=== PATIENT | female | born 1965 | race Caucasian/White ===

== ENCOUNTER 2017-10-31 06:09 | Emergency (ER) | payer OTHER ==
[~2017-10-31] VITALS: Ht 152.4 cm; Wt 54.4 kg
[~2017-10-31 06:09] MED LIST: CIPRO500 MG PO; KETO10TA2 PO; TRAMADOL HCL-AP1 TAB PO
[2017-10-31] MEDS ORDERED: AMOX1TAB12 PO (08:11)
[2017-10-31] MEDS ORDERED: ZYNCOF 20-400120 ML PO (08:11)
[2017-10-31] MEDS ORDERED: KETO10TA2 PO (08:11)
== END 2017-10-31 08:25 | disposition home or self-care (01) ==
LOC: ER 06:09
DX: L08.89 Other specified local infections of the skin and subcutaneous tissue (principal); R05 Cough

== ENCOUNTER 2018-11-02 19:01 | Emergency (ER) | payer OTHER ==
[~2018-11-02] VITALS: Ht 152.4 cm; Wt 59.0 kg
[~2018-11-02 19:01] MED LIST changes: +AMOX1TAB12 PO; +ZYNCOF 20-400120 ML PO
[2018-11-04] MEDS ORDERED: CRESTOR10 MG (23:20)
[2018-11-04] MEDS ORDERED: DESCOVY 200-251 EACH (23:20)
[2018-11-04] MEDS ORDERED: TIVICAY50 MG (23:20)
[2018-11-05] MEDS ORDERED: CLONAZEPAM1 MG PO (03:58)
== END 2018-11-03 00:59 | disposition home or self-care (01) ==
LOC: ER 19:01
DX: J42 Unspecified chronic bronchitis (principal)

== ENCOUNTER → 2018-11-04 | Emergency (ER) | payer OTHER ==
[~2018-11-04] VITALS: Ht 152.4 cm; Wt 59.0 kg
[~2018-11-04] MED LIST changes: +CLONAZEPAM1 MG PO; +CRESTOR10 MG; +DESCOVY 200-251 EACH; +TIVICAY50 MG
== END | disposition home or self-care (01) ==
LOC: ER 23:06
DX: R06.02 Shortness of breath (principal); F41.8 Other specified anxiety disorders

== ENCOUNTER 2023-01-08 13:50 | Emergency (ER) | payer OTHER ==
[~2023-01-08] VITALS: Ht 152.4 cm; Wt 55.8 kg
[2023-01-08] MEDS ORDERED: LEVOFLOXACIN750 MG PO (18:20)
== END 2023-01-08 19:02 | disposition home or self-care (01) ==
LOC: ER 13:50
DX: N20.9 Urinary calculus, unspecified (principal); I10 Essential (primary) hypertension; R10.9 Unspecified abdominal pain

== ENCOUNTER 2025-04-13 07:42 | Outpatient (CLI) | payer OTHER ==
[~2025-04-13 07:42] MED LIST changes: +CRESTOR10 MG PO; +LEVOFLOXACIN750 MG PO; +QC TUSSIN DM L118 ML PO; +ZESTRIL10 M1 PO
== END 2025-04-13 07:43 | disposition home or self-care (01) ==
LOC: SONOGRAMA 07:42
DX: N20.0 Calculus of kidney (principal)

== ENCOUNTER 2025-06-04 07:06 | Outpatient (CLI) | payer OTHER | END 2025-06-04 07:11 | disposition home or self-care (01) | LOC: TOM 07:06 | PROVIDERS: ATTEND General Practice | DX: N20.0 Calculus of kidney (principal) ==

== ENCOUNTER 2025-06-30 08:24 | Emergency (ER) | payer OTHER ==
[~2025-06-30] VITALS: Ht 152.4 cm; Wt 59.0 kg
== END 2025-06-30 09:29 | disposition home or self-care (01) ==
LOC: ER 08:24
DX: D17.1 Benign lipomatous neoplasm of skin and subcutaneous tissue of trunk (principal); I10 Essential (primary) hypertension

== ENCOUNTER 2025-07-04 12:09 | Emergency (ER) | payer OTHER ==
[~2025-07-04] VITALS: Ht 152.4 cm; Wt 59.0 kg
[2025-07-04] MEDS ORDERED: FAMOTIDINE/PF 20 MG/2 ML VIAL IV PUSH ONE (13:15)
[2025-07-04] MEDS ORDERED: 0.9 % SODIUM CHLORIDE 1,000 ML IV SCH (13:15)
[2025-07-04] MEDS ORDERED: ONDANSETRON HCL 2 MG/ML VIAL IV ONE (13:15)
[2025-07-04] MEDS ORDERED: FAMOTIDINE/PF 20 MG/2 ML VIAL ONE (13:19)
[2025-07-04] MEDS ORDERED: ONDANSETRON HCL 2 MG/ML VIAL ONE (13:19)
[2025-07-04 13:56] LABS: BASO % 0.3 % (0.1-1.2); EOS # 0.03 (0.04-0.54); EOS % 0.3 % (0.7-7.0); LYMPH # 2.30 (1.18-3.74); LYMPH % 20.7 % (19.3-53.1); MEAN PLATELET VOLUME 9.30 fl (9.4-12.4); MONO # 0.58 (0.24-0.82); MONO % 5.2 % (4.7-12.5); NEUT # 8.15 (1.56-6.13); NEUT % 73.2 % (34.0-71.1); RED CELL DISTRIBUTION WIDTH 13.3 % (11.6-14.4)
[2025-07-04 14:19] LABS: BUN CREA RATIO 17.0 (7.0-25.0); CREATININE SERUM 1.06 mg/dL (0.55-1.02); GFR 52.7; GLUCOSE FASTING 120.0 mg/dL (65-100); OSMOLALITY SERUM 286.0 MOSM/KG (275-295)
== END 2025-07-04 16:22 | disposition home or self-care (01) ==
LOC: ER 12:09
PROVIDERS: Emergency Medicine
DX: A05.9 Bacterial foodborne intoxication, unspecified (principal); K29.70 Gastritis, unspecified, without bleeding; I10 Essential (primary) hypertension; F41.8 Other specified anxiety disorders

== ENCOUNTER 2025-08-20 05:26 | Emergency (ER) | payer OTHER ==
[~2025-08-20] VITALS: Ht 152.4 cm; Wt 59.0 kg
[2025-08-20] MEDS ORDERED: KETOROLAC TROMETHAMINE 60 MG VIAL IM ONE ×2 (07:27→07:30)
[2025-08-20] MEDS ORDERED: NORFLEX100MG PO (09:34)
== END 2025-08-20 09:39 | disposition home or self-care (01) ==
LOC: ER 05:26
DX: M25.512 Pain in left shoulder (principal); I10 Essential (primary) hypertension

== ENCOUNTER 2025-10-08 07:57 | Outpatient (CLI) | payer OTHER ==
[~2025-10-08 07:57] MED LIST changes: +NORFLEX100MG PO
== END 2025-10-08 08:00 | disposition home or self-care (01) ==
LOC: SONOGRAMA 07:57
PROVIDERS: ATTEND Urology
DX: N20.1 Calculus of ureter (principal)